=== PATIENT | male | born 2000 | race Caucasian/White ===

== ENCOUNTER 2023-01-19 15:11 | Emergency (ER) | payer MEDICAID | END 2023-01-19 15:31 | disposition home or self-care (01) | LOC: VM.ED 15:11 | DX: Z48.00 Encounter for change or removal of nonsurgical wound dressing (principal); I10 Essential (primary) hypertension; Z91.048 Other nonmedicinal substance allergy status; Z79.899 Other long term (current) drug therapy | CPT/HCPCS: 99282; 99283 ==